=== PATIENT | female | born 1985 | race Caucasian/White ===

== ENCOUNTER → 2021-03-19 | Outpatient (CLI) | payer OTHER ==
[~2021-03-19] MED LIST: DOCU-131 PO; IBUP-1222 PO; LEVO75TA PO; OXYC1TAB14 PO; PREN1TAB60 PO
== END | disposition home or self-care (01) ==
LOC: RAD 10:22
PROVIDERS: ATTEND Emergency Medicine
DX: M54.5 Low back pain (principal)
CPT/HCPCS: 72110